=== PATIENT | female | born 1990 | race Caucasian/White ===

== ENCOUNTER 2017-12-27 12:33 | Emergency (ER) | payer MEDICAID ==
[2017-12-27] MEDS ORDERED: ALBUTEROL SULFATE (0.083%) 2.5 MG/3 ML NEB INH ONE ×2 (12:39→14:05)
[2017-12-27] MEDS ORDERED: METHYLPREDNISOLONE PF 125MG/VIAL IVP ONE (12:39)
[2017-12-27] MEDS ORDERED: IPRATROPIUM/ALBUTEROL (0.5MG/3MG) NEB INH ONE (12:39)
--- NOTE | 2017-12-27 12:46 | Emergency Department Record ---
History of Present Illness - General Chief Complaint: Shortness of breath Stated Complaint: DEV Time Seen by Provider: 12/27/17 12:39 Source: Patient Mode of Arrival: Ambulatory Limitations: No limitations - History of Present Illness Initial Comments: 27 yo female presents with cough, wheezing, shortness of breath. She has asthma. She last used her Albuterol about 8am. She states her wheezing has been worse for 2 weeks but then today again breathing seemed more difficult. No fevers. She has had yellow-greenish phlegm. She is a non smoker. She has had 5 days of diarrhea as well. She is not on steroids currently. She does not have a PCP currently. MD Complaint: "Asthma attack", Shortness of breath Onset/Timin -: Week(s) (2 weeks of DBI but worse today) Severity: Moderate Quality: Other Improves With: Nothing Worsens With: Nothing Known History Of: Asthma Context: Recent URI Associated Symptoms: Cough Treatments Prior to Arrival: None - Related Data Home Oxygen Therapy: No Home Medications Medication Instructions Recorded Confirmed Last Taken Albuterol Sulfate 0.083% [Neb] 3 ml NEB .EVERY 4-6 HOURS PRN 12/27/17 12/27/17 Unknown Albuterol Sulfate [Proair Hfa] 1 - 2 puff IH .EVERY 4-6 HOURS PRN 12/27/1712/27 Unknown Buspirone HCl [Buspar] 20 mg PO BID 12/27/17 12/27/17 Unknown Famotidine [Pepcid] 20 mg PO DAILY 12/27/17 12/27/17 Unknown Hydroxyzine HCl 10 mg PO DAILY 12/27/17 12/27/17 Unknown Loratadine [Claritin] 10 mg PO DAILY 12/27/17 12/27/17 Unknown Mometasone/Formoterol [Dulera 100 13 gm IH DAILY 12/27/17 12/27/17 Unknown Mcg/5 Mcg Inhaler] Montelukast Sodium [Singulair] 10 mg PO DAILY 12/27/17 12/27/17 Unknown Omeprazole [Prilosec] 20 mg PO DAILY 12/27/17 12/27/17 Unknown Ranitidine HCl [Zantac] 150 mg PO DAILY 12/27/17 12/27/17 Unknown Previous Rx's Medication Instructions Recorded Beclomethasone Dipropionate [Qvar 10.6 gm IH BID #1 hfa.aeroba 12/27/17 Redihaler] Doxycycline Monohydrate 100 mg PO BID #14 capsule 12/27/17 Prednisone [Prednisone 20Mg] 20 mg PO BID #14 tab 12/27/17 Allergies Allergy/AdvReac Type Severity Reaction Status Date / Time azithromycin [From Zithromax] Allergy HIVES Verified 12/27/17 12:48 peanut Allergy makes Verified 12/27/17 12:48 asthma worse Penicillins Allergy HIVES Verified 12/27/17 12:48 Travel Screening - Travel/Exposure Within Last 30 Days Have you traveled within the last 30 days?: No Review of Systems Constitutional: Denies: Chills, Fever, Malaise, Weakness Eyes: Denies: Eye discharge ENT: Reports: Congestion. Denies: Ear pain, Throat pain Respiratory: Reports: Cough, Dyspnea, Wheezes. Denies: Hemoptysis Cardiovascular: Denies: Chest pain, Palpitations, Syncope Endocrine: Denies: Fatigue, Polydipsia, Polyuria Gastrointestinal: Denies: Abdominal pain, Diarrhea, Nausea, Vomiting Genitourinary: Denies: Dysuria, Urgency Musculoskeletal: Denies: Arthralgia, Back pain, Myalgia Skin: Denies: Bruising, Change in color, Rash Neurological: Denies: Headache, Numbness, Weakness Psychiatric: Denies: Anxiety Hematological/Lymphatic: Denies: Blood Clots, Easy bleeding, Easy bruising, Swollen glands Physical Exam - General General Appearance: Alert, Oriented x3, Cooperative, Mild distress Limitations: No limitations - Head Head exam: Normal inspection - Eye Eye exam: Normal appearance. negative: Conjunctival injection, Scleral icterus - ENT ENT exam: Normal exam, Mucous membranes moist, Normal orophraynx Ear exam: Normal external inspection Nasal Exam: Normal inspection Mouth exam: Normal external inspection - Neck Neck exam: Normal inspection - Respiratory Respiratory exam: Accessory muscle use, Decreased breath sounds, Prolonged expiratory, Respiratory distress (mild increase in work of breath with mild conversational dyspnea), Wheezes. negative: Normal lung sounds bilaterally, Rhonchi - Cardiovascular Cardiovascular Exam: Normal rhythm, Normal heart sounds, Tachycardia - GI/Abdominal GI/Abdominal exam: Soft. negative: Tenderness - Rectal Rectal exam: Deferred - exam: Deferred - Extremities Extremities exam: Normal inspection. negative: Calf tenderness, Pedal edema - Back Back exam: Denies: CVA tenderness (R), CVA tenderness (L) - Neurological Neurological exam: Alert, Normal gait, Oriented X3. negative: Altered - Psychiatric Psychiatric exam: Normal affect, Normal mood - Skin Skin exam: Dry, Intact, Normal color, Warm Course Vital Signs 12/27/17 12:36 Pulse Rate 123 H Respiratory 20 Rate Blood Pressure 109/71 Pulse Ox 92 L - Reevaluation(s) Reevaluation #1: No prior visits on EMR 12/27/17 12:46 12/27/17 13:16 Much better air exchange and decreased work of breathing after the Duoneb. 12/27/17 13:16 The labs were reviewed No acute changes on the CBC. The CMP with glucose of 69. HCG is negative. 12/27/17 14:06 She continues to feel improved. Mild expiratory wheeze. No conversational dyspnea Waiting for CXR report. My prelim report is no acute process. 12/27/17 14:07 She is allergic to Zithromax 12/27/17 14:32 HR now 88 The patient is doing well She was sent with Breo and Albuterol. She was given Rx for when she then runs out. Medical Decision Making - Lab Data Result diagrams: 12/27/17 12:42 12/27/17 12:42 Disposition Disposition: Discharge Clinical Impression: Asthma exacerbation Disposition: Home, Self-Care Condition: (1) Good Instructions: Asthma (ED) Additional Instructions: Take the prescriptions provided today as directed. Call your family doctor. Call to schedule the next available appointment for a recheck. Return to ED if your symptoms worsen or if you have any new concerns. Review the final Emergency Record and test results with your doctor on follow up Prescriptions: Beclomethasone Dipropionate [Qvar Redihaler] 10.6 gm IH BID #1 hfa.aeroba Doxycycline Monohydrate 100 mg PO BID #14 capsule Prednisone [Prednisone 20Mg] 20 mg PO BID #14 tab Referrals: JANIS LEE [MEDICAL DOCTOR] - Forms: Patient Portal Access Time of Disposition: 14:11 Quality - Quality Measures Quality Measures: N/A - Blood Pressure Screening Does Patient Have Any of the Following: No Blood Pressure Classification: Normal BP Reading Systolic Measurement: 100 Diastolic Measurement: 74 Screening for High Blood Pressure: < Normal BP, F/U Not Required > [G7808]
[2017-12-27 12:47] LABS: HEMATOCRIT 43.3 % (35.0-47.0); HEMOGLOBIN 14.5 gm/dl (11.6-16.0); MEAN CELL VOLUME 85.7 fl (81-97); MEAN CORPUSCULAR HEMOGLOBIN 28.7 pg (27-33); MEAN CORPUSCULAR HGB CONC 33.5 g/dl (32-36); MEAN PLATELET VOLUME 9.3 fl (7.4-10.4); PLATELET COUNT 347 K/uL (130-400); RED BLOOD COUNT 5.05 M/uL (3.80-5.40); RED CELL DISTRIBUTION WIDTH 13.7 % (11.5-14.5)
[2017-12-27 12:57] LABS: PLATELET ESTIMATE NORMAL (NORMAL)
[2017-12-27] MEDS ORDERED: AZITHROMYCIN 500 MG TABLET PO ONE (12:59)
[2017-12-27 13:00] LABS: BLOOD UREA NITROGEN 8 mg/dL (6-20); CREATININE 0.7 mg/dL (0.5-0.9); EST GLOMERULAR FILTRATION RATE > 60 mL/min
[2017-12-27 13:01] LABS: TOTAL PROTEIN 7.1 g/dL (6.6-8.7)
[2017-12-27 13:03] LABS: GLUCOSE,RANDOM 69 mg/dL (74-109)
[2017-12-27 13:05] LABS: ALB/GLOB RATIO 2.1 (1.1-1.8); ALBUMIN 4.8 g/dL (4.0-5.0); ALKALINE PHOSPHATASE 45 U/L (35-104); ALT/SGPT 26 U/L (<33); AST/SGOT 14 U/L (10.0-35.0)
[2017-12-27] MEDS ORDERED: MECLIZINE 25 MG TABLET PO ONE (13:43)
[2017-12-27] MEDS ORDERED: DOXYCYCLINE HYCLATE 100 MG CAPSULE PO ONE (14:07)
[2017-12-27] MEDS ORDERED: ALBUTEROL HFA 8 GM INHALER INH ONE (14:31)
[2017-12-27] MEDS ORDERED: BREO (FLUTICASONE/VILANTEROL) 100MCG/25MCG INHALER INH ONE (14:37)
[2017-12-28] MEDS ORDERED: BREO (FLUTICASONE/VILANTEROL) 100MCG/25MCG INHALER INH SCH (06:00)
--- NOTE | 2017-12-30 14:30 | RADIOLOGY REPORT ---
EXAM: CHEST, TWO VIEWS HISTORY: ASTHMA ATTACK TODAY WITH COUGH AND CONGESTION. TECHNIQUE: PA and lateral views of the chest were obtained. Comparison: None. FINDINGS: The heart size is normal. The lungs appear expanded with no acute infiltrate seen. No pleural effusion or pneumothorax evident. Thoracic curve to the right. A deep inspiration has been taken which could reflect some air trapping related to the diagnosis provided of asthma. IMPRESSION: 1. DEEP INSPIRATION MAY BE RELATED TO THE HISTORY OF ASTHMA. NO ACUTE INFILTRATE EVIDENT. 2. THORACIC CURVE TO THE RIGHT. JOB NUMBER: [id number] MTDD
== END 2017-12-27 14:50 | disposition home or self-care (01) ==
LOC: ER 12:33
DX: J45.901 Unspecified asthma with (acute) exacerbation (principal)
CPT/HCPCS: 71046; 80053; 84703; 85027; 94640; 94664; 96374; 99283; J2930; J7613